=== PATIENT | female | born 1990 | race Caucasian/White ===

== ENCOUNTER → 2019-02-14 | Outpatient (CLI) | payer OTHER ==
[2015-02-10 14:08] VITALS: BP 126/62
--- NOTE | 2019-02-14 17:00 | RAD ---
US PELVIS W/TV History: Menstrual changes Comparison: August 19, 2016 Findings: Multiple transabdominal sonographic images of the pelvis are submitted. Uterus measured 8.7 x 2.9 x 4.5 cm. Left ovary measured 2.6 x 1.7 x 2.2 cm with normal low resistance vascularity. Right ovary measured 3.7 x 3 x 1.5 cm with normal low resistance vascularity. Transvaginal ultrasound: Multiple transvaginal sonographic images of pelvis are submitted. There is very minimal free fluid in the pelvis. Endometrium measured about 0.3 cm in thickness. There is now small hypoechoic lesion of the uterus in the lower uterine segment, sonographic features of a small 0.5 cm cyst. There is normal low resistance vascularity of the right ovary. Impression: 1. There is nonspecific trace free fluid in the pelvis, could be physiologic. Other than a small cyst of the lower uterine segment, no significant abnormality is demonstrated. Electronically signed by: Tone Dean MD (02/14/2019 4:58 PM) [id number]
== END | disposition home or self-care (01) ==
LOC: US 13:27
PROVIDERS: ATTEND Registered Nurse
DX: N85.8 Other specified noninflammatory disorders of uterus (principal); N92.6 Irregular menstruation, unspecified
CPT/HCPCS: 76830; 76856